=== PATIENT | male | born 1980 | race Caucasian/White ===

== ENCOUNTER 2023-05-22 13:00 | Emergency (ER) | payer MEDICAID, OTHER ==
[~2023-05-22] VITALS: Ht 180.3 cm; Wt 84.0 kg
[2023-05-22] MEDS ORDERED: LIDOCAINE HCL 1% 20ML VIAL (Pyxis) INJ INFIL ONE (13:45)
[2023-05-22] MEDS ORDERED: TETANUS, DIPHTHERIA, PERTUSSIS VAC/PF 0.5ML (>10YR OLD) IM ONE (14:00)
[2023-05-22 15:23] VITALS: BP 112/88; PULSE 79; RESP 18; TEMP 98.7
== END 2023-05-22 15:26 | disposition home or self-care (01) ==
LOC: ER 13:00
DX: S61.012A Laceration without foreign body of left thumb without damage to nail, initial encounter (principal); W26.0XXA Contact with knife, initial encounter; Y93.89 Activity, other specified; Y92.89 Other specified places as the place of occurrence of the external cause; Y99.8 Other external cause status
CPT/HCPCS: 99283; 73140; 90715; 12001; 90471; J3490